=== PATIENT | female | born 1990 | race Caucasian/White ===

== ENCOUNTER 2022-12-24 17:38 | Emergency (ER) | payer OTHER ==
[~2022-12-24] VITALS: Ht 157.5 cm; Wt 90.7 kg
[~2022-12-24 17:38] MED LIST: PREN-385 PO
[2022-12-24 17:44] VITALS: BP 130/76; PULSE 86; RESP 15; TEMP 97.8; O2SAT 98
[2022-12-24] MEDS ORDERED: ACETAMINOPHEN 325 MG TAB PO ONE (19:40)
[2022-12-24] MEDS ORDERED: SULF-59 PO (19:49)
[2022-12-24] MEDS ORDERED: IBUP-2213 PO (19:49)
[2022-12-24] MEDS ORDERED: BACITRACIN OINT 500 UNITS/GM PKT TP ONE ×2 (20:19→20:20)
== END 2022-12-24 20:47 | disposition home or self-care (01) ==
LOC: MED 17:38
DX: L02.31 Cutaneous abscess of buttock (principal); Z79.899 Other long term (current) drug therapy; Z79.1 Long term (current) use of non-steroidal anti-inflammatories (NSAID); Z79.2 Long term (current) use of antibiotics; Z88.0 Allergy status to penicillin
CPT/HCPCS: 99283